=== PATIENT | male | born 1985 | race Caucasian/White ===

== ENCOUNTER → 2025-03-01 11:47 | Outpatient (CLI) | payer OTHER, SELFPAY ==
--- NOTE | 2025-03-01 11:49 | DI.US.S_ITS ---
PROCEDURE: US SCROTUM INDICATIONS: RIGHT TESTICLE AND GROIN PAIN ?HERNIA TECHNIQUE: Real-time scanning was performed of the scrotum and testicles, with image documentation. Color and pulse Doppler interrogation was performed of both testicles. COMPARISON: None. FINDINGS: Right: Testicle is normal in size at 4.3 x 3.3 x 2.5 cm, and homogenous in echotexture. Epididymis is normal in overall size and morphology. Simple epididymal head cysts measuring 2 mm. No hydrocele or varicoceles. Overlying scrotal skin is normal in thickness. Left: Testicle is normal in size at 5.0 x 2.9 x 1.9 cm, and homogeneous in echotexture. Epididymis is normal in overall size and morphology. Simple epididymal head cyst measuring 3 mm. No hydrocele or varicoceles. Overlying scrotal skin is normal in thickness. Doppler: Color and pulse Doppler demonstrate normal and symmetric arterial flow in both testicles. Small right inguinal hernia containing fat. This is reducible. IMPRESSION: Small right inguinal hernia containing fat, which is reducible. Small bilateral epididymal head cysts. No testicular pathology. Dictated by: Bud Weiss M.D. on 03/01/2025 at 14:12 Approved by: Bud Weiss M.D. on 03/01/2025 at 14:14
== END ==
LOC: US 11:48
PROVIDERS: PCP Family Medicine; Referring Provider Family Medicine; Visit Provider Family Medicine
DX: N50.3 Cyst of epididymis (principal); K40.90 Unilateral inguinal hernia, without obstruction or gangrene, not specified as recurrent; R10.30 Lower abdominal pain, unspecified
CPT/HCPCS: 76870

== ENCOUNTER → 2025-03-05 08:08 | Outpatient (CLI) | payer OTHER, SELFPAY ==
[2025-03-05 08:58] LABS: Add Manual Diff / Slide Review NO; Hematocrit 42.2 % (41-53); Hemoglobin 14.7 g/dL (13.5-17.5); Lymphocytes Absolute Auto 2100 /uL (1100-4500); Mean Corpuscular HGB Conc 34.9 % (30-36); Mean Corpuscular Hemoglobin 31.3 PG (26-34); Mean Corpuscular Volume 89.7 fL (80-100); Platelet Count 211 X10^3/uL (150-400)
[2025-03-05 09:38] LABS: Alanine Aminotransferase 35 IU/L (<50); Albumin 4.3 g/dL (3.5-5.0); Albumin Globulin Ratio 1.9 (1.0-2.8); Alkaline Phosphatase 50 U/L (38-126); Blood Urea Nitrogen 24 mg/dL (9-20); Calcium 9.2 mg/dL (8.4-10.2); Carbon Dioxide 28 mmol/L (22-32); Chloride 106 mmol/L (98-107); Cholesterol 168 mg/dL (140-199); Estimated Glomerular Filt Rate > 60 mL/min (>60); Globulin 2.3 g/dL (1.7-4.1); Glucose 88 mg/dL (70-99); HDL Cholesterol 49 mg/dL (40-60); HEMOLYSIS < 15 (0-50); Sodium 139 mmol/L (137-145); Total Protein 6.6 g/dL (6.3-8.2); Triglycerides 41 mg/dL (35-150)
[2025-03-05 09:40] LABS: Potassium 5.5 mmol/L (3.4-5.1)
[2025-03-05 10:03] LABS: TSH w/ Reflex to FT4 1.21 uIU/mL (0.47-4.68)
== END ==
PROVIDERS: PCP Family Medicine; Referring Provider Family Medicine; Visit Provider Family Medicine
DX: E66.3 Overweight (principal); L65.9 Nonscarring hair loss, unspecified; S39.81XA Other specified injuries of abdomen, initial encounter; R10.31 Right lower quadrant pain; R53.83 Other fatigue
CPT/HCPCS: 36415; 80053; 80061; 84403; 84443; 85025